=== PATIENT | female | born 1990 | race Hispanic/Latino ===

== ENCOUNTER 2021-02-26 21:15 | Emergency (ER) | payer OTHER ==
[~2021-02-26] VITALS: Ht 152.4 cm; Wt 93.0 kg
[2021-02-26 21:23] VITALS: BP 139/89
[2021-02-26] MEDS ORDERED: AZIT500T PO (23:51)
[2021-02-26] MEDS ORDERED: METH4TAB3 PO (23:51)
[2021-02-27] MEDS ORDERED: SOLU-MEDROL 125MG VIAL IM ONE
[2021-02-27] MEDS ORDERED: AZITHROMYCIN 250 MG TABLET PO ONE
== END 2021-02-27 00:23 | disposition home or self-care (01) ==
LOC: EDH 21:15
DX: M94.0 Chondrocostal junction syndrome [Tietze] (principal); J40 Bronchitis, not specified as acute or chronic; F31.9 Bipolar disorder, unspecified; F41.9 Anxiety disorder, unspecified
CPT/HCPCS: 93005; 96372; 99283; J2930

== ENCOUNTER 2024-07-20 20:45 | Emergency (ER) | payer BC, OTHER ==
[~2024-07-20] VITALS: Ht 149.9 cm; Wt 99.8 kg
[~2024-07-20 20:45] MED LIST: AZIT500T PO; METH4TAB3 PO
--- NOTE | 2024-07-20 21:17 | HMCIMG ---
US SOFT TISSUE NECK REASON: right neck swelling. COMPARISON: None TECHNIQUE: Right neck ultrasound study was performed. FINDINGS: There are right cervical lymph nodes with the largest measuring 2.9 x 1.4 cm consistent with cervical adenopathy. Follow-up examination would be helpful. IMPRESSION: Right cervical adenopathy with the largest measuring 2.9 x 1.4 cm.
--- NOTE | 2024-07-20 21:19 | ERN ---
General Stated Complaint: SWELLING TO RIGHT SIDE OF FACE,THROAT,BACK PAIN Time Seen by MD: 20:45 Source: patient, family History of Present Illness Initial Comments Patient is a 33-year-old female, evaluated for right preauricular neck discomfort. She states that the swelling began a couple of days ago and has been getting worse. Allergies: Coded Allergies: Penicillins (Unverified Allergy, Unknown, 07/20/24) ibuprofen (Unverified Allergy, Unknown, 07/20/24) naproxen (Unverified Allergy, Unknown, 07/20/24) Home Meds Active Scripts Azithromycin (Zithromax) 500 Mg Tablet, 500 MG PO DAILY, #7 TAB Prov:CRISPIN GUZMÁN MD 02/26/21 Methylprednisolone (Medrol) 4 Mg Tab.ds.pk, 4 MG PO AD, #1 PACK Prov:CRISPIN GUZMÁN MD 02/26/21 Past Medical History Past Medical History: Anxiety, Bipolar, Depression ROS Dictation CONSTITUTIONAL: No chills, no fever, no weakness, no diaphoresis, no malaise. HEAD/FACE: No signs of trauma. EENT: No eye pain, no blurred vision, no tearing, no double vision, no ear pain, no ear discharge, no nose pain, no nasal congestion, no throat pain, no throat swelling, no mouth pain. RESPIRATORY: No cough, no orthopnea, no SOB, no stridor, no wheezing. CARDIOVASCULAR: No chest pain, no edema, no palpitations, no syncope. GASTROINTESTINAL/ABDOMINAL: No abdominal pain, no constipation, no diarrhea, no nausea, no vomiting. GENITOURINARY: No abnormal discharge, no dysuria, no frequent urination, no hematuria. No complaints of pain in the genitals. MUSCULOSKELETAL: No back pain, no gout, no joint pain, no joint swelling, no muscle pain, no muscle stiffness, no neck pain. INTEGUMENTARY: No change in color, no change in hair/nails, no dryness, no lesion, no lumps, no rash. NEUROLOGICAL/PSYCH: No anxiety, not depressed, no emotional problem, no headache, no numbness, no pre-existing deficit, no history of seizures, no tremors, no weakness. HEMATOLOGIC/LYMPHATIC: Not anemic, no history of blood clots, no apparent bleeding, no bruising, glands not swollen. All Systems Negative, Except as Noted. Physical Exam Physical Exam Dictation VITAL SIGNS: Reviewed. GENERAL APPEARANCE: Alert, oriented x3, no acute distress, obese. HEAD AND FACE: Non-traumatic. EYES: PERRL, pink conjunctivas, eyelid no trauma, anterior chamber clear. EARS: Pinnas intact and no signs of trauma or erythema. Ear canals clear and no discharge. TMs erythema. NOSE: No discharge, no bleeding. OROPHARYNX: Mouth normal, teeth no caries, tongue pink. Pharynx clear, erythema. Tonsils no exudates, no abscesses noted. Mucous membrane moist. NECK: Supple, non-tender, no thyromegaly, no masses, no JVD, no bruits. BREAST: Deferred. CHEST: No tenderness, no crepitus, no paradoxical movement, no retractions. LUNGS: Clear, well-ventilated, symmetric, no rales, no wheezing, no rhonchi, no stridor, good breath sounds bilaterally. HEART: Regular rate, regular rhythm, no murmur, no gallops. VASCULAR: No peripheral edema. ABDOMEN: Soft, positive bowel sounds, nondistended, no guarding, nontender, no rebound, no masses no hepatomegaly, no splenomegaly, no Sullivan's sign, no hernias. RECTAL: Deferred. GENITAL: Deferred. NEUROLOGICAL: Normal speech, gross motor function intact, gross sensory function intact. MUSCULOSKELETAL: Neck nontender, full range of motion, back nontender, full range of motion. EXTREMITIES: Nontender, full range of motion. SKIN: Color pink, dry, no turgor, no rash, no lacerations, no abrasions, no contusions. LYMPHATICS: Deferred. Results Laboratory and Microbiology Lab and Micro Result Laboratory Tests Test 07/20/24 21:15 07/20/24 21:25 White Blood Count 4.3 K/uL (4.8-10.8) L Red Blood Count 4.19 MIL/uL (4.00-5.50) Hemoglobin 11.8 g/dL (12.0-16.0) L Hematocrit 34.5 % (36-48) L Mean Corpuscular Volume 82.3 fL (79-99) Mean Corpuscular Hemoglobin 28.2 pg (27.0-33.0) Mean Corpuscular Hemoglobin Concent 34.2 g/dL (32.0-36.0) Red Cell Distribution Width 12.1 % (11.0-15.5) Platelet Count 346 K/uL (130-400) Mean Platelet Volume 9.3 fL (7.5-10.5) Immature Granulocyte % (Auto) 0.2 % (0-1) Neutrophils (%) (Auto) 38.9 % (40.0-77.0) L Lymphocytes (%) (Auto) 50.8 % (21.0-51.0) Monocytes (%) (Auto) 7.5 % (3.0-13.0) Eosinophils (%) (Auto) 2.1 % (0.0-8.0) Basophils (%) (Auto) 0.5 % (0.0-5.0) Neutrophils # (Auto) 1.7 K/uL (1.8-7.7) L Lymphocytes # (Auto) 2.2 K/uL (1.0-4.8) Monocytes # (Auto) 0.3 K/uL (0.1-1.0) Eosinophils # (Auto) 0.09 K/uL (0.00-0.70) Basophils # (Auto) 0.02 K/uL (0.00-0.20) Absolute Immature Granulocyte (auto 0.01 K/uL (0-1) Nucleated Red Blood Cells 0.0 % (0.0-0.19) Sodium Level 137 mmol/L (136-145) Potassium Level 3.4 mmol/L (3.5-5.1) L Chloride Level 100 mmol/L (101-111) L Carbon Dioxide Level 31 mmol/L (21-32) Blood Urea Nitrogen 10 mg/dL (7-18) Creatinine 0.8 mg/dL (0.5-1.0) Glomerular Filtration Rate Calc 99 mL/min (>90) Random Glucose 87 mg/dL (70-105) Total Calcium 8.9 mg/dL (8.5-10.1) Influenza Type A Antigen Negative For Type A Influenza Type B Antigen Negative For Type B SARS-CoV-2, RNA, NAAT NEGATIVE SARS CoV-2 Group A Streptococcus Rapid negative (NEGATIVE) Labs Reviewed?: Yes MDM MDM: Differential diagnosis: LYMPHANGITIS, SINUSITIS, PHARYNGITIS PATIENT IS A 33-YEAR-OLD FEMALE, KNOWN TO EVALUATED FOR RIGHT FACIAL SWELLING. ON ULTRASOUND THERE IS LYMPH NODE SWELLING IN THAT AREA. PATIENT WILL BE DISCHARGED WITH A DIAGNOSIS OF SINUSITIS WITH LYMPHANGITIS. ED Course Orders Procedure Category Date Status Time Cbc With Differential LAB 07/20/24 Complete 20:53 Basic Metabolic Panel LAB 07/20/24 Complete 20:53 Covid Rna Naat LAB 07/20/24 Complete 20:53 Rapid (Group A Strep) LAB 07/20/24 Complete 20:53 Influenza Type A & B, LAB 07/20/24 Complete Rapid 20:53 ,Urine Test LAB 07/20/24 Logged 20:53 Us Soft Tissue Neck US 07/20/24 Resulted 20:53 Vital Signs Date Time Temp Pulse Resp B/P (MAP) Pulse Ox O2 Delivery O2 Flow Rate FiO2 07/20/24 21:36 100 18 162/100 98 Room Air* 0 21 07/20/24 21:22 97.7 75 20 161/105 96 Room Air DX & DISP Disposition: Discharge Departure Impression: Primary Impression: Sinusitis Additional Impression: Lymphangitis Condition: Stable Scripts Prednisone (Prednisone) 5 Mg Tab.ds.pk 5 MG PO BID for 5 Days, #10 TAB Prov: LUBA LARSEN MD 07/20/24 Clindamycin HCl (Clindamycin HCl) 300 Mg Capsule 1 CAP PO TID for 10 Days, #30 CAP 0 Refills Prov: LUBA LARSEN MD 07/20/24 Additional Instructions: DISCHARGE HOME. REST. FOLLOW UP WITH PRIMARY CARE IN 24 HOURS. RETURN TO THE ER FOR ANY ACUTE CHANGE. PATIENT WAS ALSO ADVISED TO FOLLOW-UP WITH PRIMARY CARE PHYSICIAN IN 1 TO 2 DAYS FOR CONTINUED MONITORING. ALL INSTRUCTIONS WERE GIVEN TO LAYMANS TERM AND PATIENT AGREEABLE TO DISCHARGE AND PROPER FOLLOW-UP. Referrals: NICO BARRERA MD (PCP) Time of Disposition: 23:15 LUBA LARSEN MD Jul 20, 2024 21:19
[2024-07-20 21:28] LABS: BASOPHILS # (AUTO) 0.02 K/uL (0.00-0.20); BASOPHILS % (AUTO) 0.5 % (0.0-5.0); EOSINOPHILS # (AUTO) 0.09 K/uL (0.00-0.70); EOSINOPHILS % (AUTO) 2.1 % (0.0-8.0); HEMATOCRIT 34.5 % (36-48); IMMATURE GRANULOCYTE ABSOLUTE 0.01 K/uL (0-1); LYMPHOCYTES # (AUTO) 2.2 K/uL (1.0-4.8); LYMPHOCYTES % (AUTO) 50.8 % (21.0-51.0); MEAN CORPUSCULAR HEMOGLOBIN 28.2 pg (27.0-33.0); MEAN CORPUSCULAR HGB CONC 34.2 g/dL (32.0-36.0); MEAN CORPUSCULAR VOLUME 82.3 fL (79-99); MONOCYTES # (AUTO) 0.3 K/uL (0.1-1.0); MONOCYTES % (AUTO) 7.5 % (3.0-13.0); NEUTROPHILS # (AUTO) 1.7 K/uL (1.8-7.7); NEUTROPHILS % (AUTO) 38.9 % (40.0-77.0); PLATELET COUNT (AUTO) 346 K/uL (130-400); RED BLOOD CELL COUNT(AUTO) 4.19 MIL/uL (4.00-5.50); RED CELL DISTRIBUTION WIDTH 12.1 % (11.0-15.5); WHITE BLOOD COUNT (AUTO) 4.3 K/uL (4.8-10.8)
[2024-07-20 21:39] LABS: CREATININE 0.8 mg/dL (0.5-1.0); POTASSIUM 3.4 mmol/L (3.5-5.1)
[2024-07-20 22:08] LABS: SARS-CoV-2, RNA, NAAT NEGATIVE SARS CoV-2 (NEGATIVE)
[2024-07-20 22:13] LABS: RAPID GROUP A STREP negative (NEGATIVE)
[2024-07-20 22:24] LABS: INFLUENZA TYPE A Negative For Type A (NEGATIVE); INFLUENZA TYPE B Negative For Type B (NEGATIVE)
[2024-07-20 23:15] VITALS: BP 147/91; PULSE 92; RESP 18; TEMP 97.7; O2SAT 96
[2024-07-20] MEDS ORDERED: PRED5TAB44 PO (23:17)
[2024-07-20] MEDS ORDERED: CLIN-141 PO (23:17)
== END 2024-07-20 23:30 | disposition home or self-care (01) ==
LOC: EDH 20:45
DX: I89.1 Lymphangitis (principal); J32.9 Chronic sinusitis, unspecified; F31.9 Bipolar disorder, unspecified; Z20.822 Contact with and (suspected) exposure to COVID-19; Z79.899 Other long term (current) drug therapy; Z88.0 Allergy status to penicillin; Z88.6 Allergy status to analgesic agent
CPT/HCPCS: 36415; 76536; 80048; 85025; 87635; 87804; 87880; 99284